=== PATIENT | male | born 2000 | race Caucasian/White ===

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

== ENCOUNTER → 2020-08-02 | Outpatient (CLI) | payer OTHER | END | disposition home or self-care (01) | LOC: COVID19 08:07 | PROVIDERS: ATTEND Physician Assistant | DX: Z20.828 Contact with and (suspected) exposure to other viral communicable diseases (principal) ==

== ENCOUNTER → 2024-05-01 | Outpatient (CLI) | payer BC ==
[2024-05-01 12:23] LABS: CHOLESTEROL 120 mg/dL (<200); LDL CHOLESTEROL 58 mg/dL (9-159); SGPT/ALT 25 U/L (5-49); TRIGLYCERIDES 55 mg/dl (<150)
== END | disposition home or self-care (01) ==
LOC: LAB 11:41
PROVIDERS: ATTEND Dermatology
DX: L70.0 Acne vulgaris (principal); Z79.899 Other long term (current) drug therapy

== ENCOUNTER → 2024-07-02 | Outpatient (CLI) | payer BC ==
[2024-07-02 13:11] LABS: CHOLESTEROL 143 mg/dL (<200); SGPT/ALT 21 U/L (5-49); TRIGLYCERIDES 64 mg/dl (<150)
== END | disposition home or self-care (01) ==
LOC: LAB 12:12
PROVIDERS: ATTEND Dermatology
DX: L70.0 Acne vulgaris (principal); Z79.899 Other long term (current) drug therapy

== ENCOUNTER → 2024-07-28 | Outpatient (CLI) | payer BC | END | disposition home or self-care (01) | LOC: LAB 15:26 | PROVIDERS: ATTEND Physician Assistant | DX: Z00.00 Encounter for general adult medical examination without abnormal findings (principal) ==

== ENCOUNTER → 2024-08-03 | Outpatient (CLI) | payer BC ==
[2024-08-04 07:03] LABS: MUMPS ANTIBODIES, IGG 20.4 AU/mL (Immune >10.9); VARICELLA ZOSTER (VZV) IgG Non Reactive (Non Reactive)
== END | disposition home or self-care (01) ==
LOC: LAB 12:21
PROVIDERS: ATTEND Physician Assistant
DX: Z00.00 Encounter for general adult medical examination without abnormal findings (principal)

== ENCOUNTER 2024-08-16 10:50 | Emergency (ER) | payer OTHER, BC ==
[~2024-08-16] VITALS: Ht 185.4 cm; Wt 79.4 kg
[2024-08-16] MEDS ORDERED: Acetaminophen/Oxycodone 5 MG/325 MG TABLET PO ONE (10:55)
[2024-08-16 10:56] VITALS: BP 144/84
[2024-08-16] MEDS ORDERED: MELOXICAM15 MG PO (11:01)
== END 2024-08-16 11:28 | disposition home or self-care (01) ==
LOC: ED 10:50
DX: S09.8XXA Other specified injuries of head, initial encounter (principal); R22.0 Localized swelling, mass and lump, head; V89.2XXA Person injured in unspecified motor-vehicle accident, traffic, initial encounter; Y93.89 Activity, other specified; Y92.410 Unspecified street and highway as the place of occurrence of the external cause; Y99.8 Other external cause status